=== PATIENT | male | born 1975 | race Caucasian/White ===

== ENCOUNTER 2016-10-20 12:07 | Emergency (ER) | payer OTHER ==
[~2016-10-20 12:07] MED LIST: ASPIRIN; COZAAR PO; FLEXERIL PO; FLOMAX0.4 M1 PO; KETOPROFEN PO; MEDROL PO; METOPROLOL TAR25 MG PO; NABUMETONE PO; NEURONTIN PO; TAMBOCAR PO; VICODIN PO
== END 2016-10-20 12:27 | disposition home or self-care (01) ==
LOC: SED 12:07
DX: Z76.0 Encounter for issue of repeat prescription (principal); F17.200 Nicotine dependence, unspecified, uncomplicated; I48.91 Unspecified atrial fibrillation; I10 Essential (primary) hypertension; Z98.890 Other specified postprocedural states; Z88.0 Allergy status to penicillin; Z88.5 Allergy status to narcotic agent; Z79.899 Other long term (current) drug therapy; Z79.82 Long term (current) use of aspirin
CPT/HCPCS: 99282

== ENCOUNTER 2016-10-21 15:37 | Emergency (ER) | payer OTHER | END 2016-10-21 15:48 | disposition home or self-care (01) | LOC: CFTX 15:37 | DX: Z76.0 Encounter for issue of repeat prescription (principal); I48.91 Unspecified atrial fibrillation; J44.9 Chronic obstructive pulmonary disease, unspecified; I10 Essential (primary) hypertension; F17.210 Nicotine dependence, cigarettes, uncomplicated; Z88.0 Allergy status to penicillin; Z88.5 Allergy status to narcotic agent | CPT/HCPCS: 99282 ==